=== PATIENT | male | born 1960 | race Caucasian/White ===

== ENCOUNTER 2021-12-24 11:27 | Day surgery (SDC) | payer BC ==
[~2021-12-24] VITALS: Wt 108.4 kg
[~2021-12-24 11:27] MED LIST: ATOR10 PO; Aspirin EC81 MG PO; CHOL10002 PO; Hydrochlorothia25 MG PO; METO50 PO; MULT50L
--- NOTE | 2021-12-24 13:11 | NUR ---
12/24/21 1311 Cristine Jackson ORD.TCR CHARTING ON ORS.SXM DUE TO [employer] LOCKOUT
== END 2021-12-24 13:10 | disposition home or self-care (01) ==
LOC: ORSCSDS 11:27
PROVIDERS: Surgery
PROC: 0DBN8ZX Excision of Sigmoid Colon, Via Natural or Artificial Opening Endoscopic, Diagnostic (ICD-10-PCS; principal; 2021-12-24 13:30)
DX: Z12.11 Encounter for screening for malignant neoplasm of colon (principal); Z86.010 Personal history of colon polyps; K63.5 Polyp of colon; E78.5 Hyperlipidemia, unspecified; I10 Essential (primary) hypertension; E55.9 Vitamin D deficiency, unspecified; E66.9 Obesity, unspecified; Z68.34 Body mass index [BMI] 34.0-34.9, adult; Z79.82 Long term (current) use of aspirin; Z79.899 Other long term (current) drug therapy
CPT/HCPCS: 88305; J2704; J7120

== ENCOUNTER → 2024-02-16 | Outpatient (CLI) | payer BC | LOC: LAB SHORT 08:09 → LAB 08:09 | DX: B35.1 Tinea unguium (principal); L60.2 Onychogryphosis | CPT/HCPCS: 88305; 88312 ==